=== PATIENT | male | born 1945 | race African-American/Black ===

== ENCOUNTER 2024-06-24 13:49 | Emergency (ER) | payer MEDICAID ==
[~2024-06-24] VITALS: Ht 177.8 cm; Wt 68.0 kg
[2024-06-24 13:53] VITALS: TEMP 98.3; O2SAT 99
[2024-06-24 15:18] VITALS: BP 151/72; PULSE 110; RESP 18
[2024-06-24] MEDS: HYDROCODONE/ACETAMINOPHEN 5/325MG TABLET PO STA (15:18)
[2024-06-24] MEDS ORDERED: IBUP-2029 MT (17:38)
== END 2024-06-24 17:52 | disposition home or self-care (01) ==
LOC: ER 13:49
DX: S06.0X0A Concussion without loss of consciousness, initial encounter (principal); S46.001A Unspecified injury of muscle(s) and tendon(s) of the rotator cuff of right shoulder, initial encounter; M25.511 Pain in right shoulder; M54.2 Cervicalgia; M79.672 Pain in left foot; X58.XXXA Exposure to other specified factors, initial encounter; Y93.89 Activity, other specified; Y92.89 Other specified places as the place of occurrence of the external cause; Y99.8 Other external cause status
CPT/HCPCS: 71045; 73030; 73610; 73630; 99284; A4565